=== PATIENT | female | born 1980 | race Caucasian/White ===

== ENCOUNTER 2020-12-01 14:35 | Emergency (ER) | payer OTHER ==
--- NOTE | 2020-12-01 15:51 | ER Document Report ---
ED Medical Screen (RME) - General Stated Complaint: LOW BLOOD SUGAR Time Seen by Provider: 12/01/20 15:44 Notes: HPI: 39-year-old female with history of both anemia and hypoglycemia presenting for evaluation of possible hypoglycemia today several hours ago. Patient became very diaphoretic, heart racing, shaky while shopping. Immediately had a candy bar and a Mountain Dew, started to feel slightly better but states she still had to have her drive her home her blood sugar was 71 when she got home. It is now 143 but she still feels somewhat shaky and feels her heart is racing. No chest pain no shortness of breath. Did not actually have a syncopal episode. Patient also with epigastric bypass patient PHYSICAL EXAMINATION: Patient is answering all questions appropriately. Gait is normal. Lung sounds are clear to auscultation very mild tachycardia is noted I have greeted and performed a rapid initial assessment of this patient. A comprehensive ED assessment and evaluation of the patient, analysis of test results and completion of medical decision making process will be conducted by an additional ED providers. Please note that clinical decision making for this patient was made during the 2019 pandemic of novel coronavirus which caused a significant strain on the healthcare system including at this particular facility. Criteria for admission discharge and level of care decisions as well as treatment decisions have necessarily changed Physical Exam - Vital signs Vitals: Temp Pulse Resp BP Pulse Ox 98.1 F 101 H 16 145/96 H 98 12/01/20 14:41 12/01/20 14:41 12/01/20 14:41 12/01/20 14:41 12/01/20 14:41 Course - Vital Signs Vital signs: Temp Pulse Resp BP Pulse Ox 98.1 F 101 H 16 145/96 H 98 12/01/20 14:41 12/01/20 14:41 12/01/20 14:41 12/01/20 14:41 12/01/20 14:41 - Laboratory Results Laboratory Results Interpreted: 12/01/20 14:43 POC Glucose 143 H
[2020-12-01 16:35] LABS: ABSOLUTE EOSINOPHILS # (AUTO) 0.1 10^3/uL (0.0-0.6); ABSOLUTE LYMPHOCYTES (AUTO) 1.8 10^3/uL (0.5-4.7); ABSOLUTE MONOCYTES (AUTO) 0.8 10^3/uL (0.1-1.4); ABSOLUTE NEUT (AUTO) 7.1 10^3/uL (1.7-8.2); BASOPHILS % (AUTO) 0.3 % (0-2); EOSINOPHILS % (AUTO) 1.2 % (0-6); HEMATOCRIT 39.1 % (36.0-47.0); HEMOGLOBIN 13.4 g/dL (12.0-15.5); LYMPHOCYTES % (AUTO) 18.3 % (13-45); MEAN CORPUSCULAR HEMOGLOBIN 28.7 pg (27.0-33.4); MEAN CORPUSCULAR HGB CONC 34.2 g/dL (32.0-36.0); MEAN CORPUSCULAR VOLUME 84 fl (80-97); MONOCYTES % (AUTO) 8.5 % (3-13); PLATELET COUNT 272 10^3/uL (150-450); RED BLOOD COUNT 4.66 10^6/uL (3.72-5.28); RED CELL DISTRIBUTION WIDTH 13.4 % (11.5-14.0); SEGMENTED NEUTROPHILS % (AUTO) 71.7 % (42-78); TOTAL CELLS COUNTED % (AUTO) 100 %; WHITE BLOOD COUNT 9.9 10^3/uL (4.0-10.5)
[2020-12-01 16:42] LABS: APPEARANCE,URINE CLEAR; BILIRUBIN,URINE NEGATIVE (NEGATIVE); COLOR,URINE YELLOW; GLUCOSE, URINE NEGATIVE (NEGATIVE); KETONES,URINE NEGATIVE (NEGATIVE); LEUKOCYTE ESTERASE,URINE NEGATIVE (NEGATIVE); NITRITE,URINE NEGATIVE (NEGATIVE); PROTEIN,URINE NEGATIVE (NEGATIVE); URINE SPECIFIC GRAVITY 1.011
[2020-12-01 16:52] LABS: ALBUMIN 4.1 g/dL (3.5-5.0); ALKALINE PHOSPHATASE 96 U/L (38-126); ANION GAP 5 (5-19); ASPARTATE AMINO TRANSFERASE 23 U/L (14-36); BILIRUBIN,DIRECT 0.2 mg/dL (0.0-0.4); BILIRUBIN,TOTAL 0.4 mg/dL (0.2-1.3); BLOOD UREA NITROGEN 9 mg/dL (7-20); CALCIUM 8.8 mg/dL (8.4-10.2); CARBON DIOXIDE 31 mmol/L (22-30); CHLORIDE 104 mmol/L (98-107); GLUCOSE 93 mg/dL (75-110); POTASSIUM 4.7 mmol/L (3.6-5.0); TOTAL PROTEIN 7.1 g/dL (6.3-8.2)
--- NOTE | 2020-12-01 18:15 | EKG REPORT ---
SEVERITY:- ABNORMAL ECG - SINUS RHYTHM PROBABLE LEFT ATRIAL ABNORMALITY PROBABLE LEFT VENTRICULAR HYPERTROPHY CONSIDER ANTERIOR INFARCT BORDERLINE T ABNORMALITIES, INFERIOR LEADS : Confirmed by: Johanna Santiago MD 01-Dec-2020 18:14:34
--- NOTE | 2020-12-01 22:10 | ER Document Report ---
ED General - General Chief Complaint: Low Blood Sugar Stated Complaint: LOW BLOOD SUGAR Time Seen by Provider: 12/01/20 15:44 Primary Care Provider: MILTON NICHOLSON PA-C [Primary Care Provider] - Follow up as needed - HPI Notes: 39-year-old female presents with concerns for hypoglycemic episode. Patient reports she has had multiple episodes of hypoglycemia in the past. She states that this morning she was shopping at [employer], she began to feel sweaty, heart racing and shaky. She states that she ate and drink and her symptoms resolved. She took her blood sugar and it was in the 70s. Patient states that her is a diabetic and he will occasionally monitor her sugars. She has had an ep isode where her sugars are in the 60s. She has not been evaluated for these episodes via her primary care doctor. She also reports concerned that her anemia is back. Patient currently denies complaints. - Related Data Allergies/Adverse Reactions: clindamycin Allergy (Verified 12/01/20 21:39) diphenhydramine [From Benadryl] Allergy (Verified 12/01/20 21:39) Home Medications: LEXAPRO. PROPRANALOL. CLANAZEPAM Past Medical History - General Information source: Patient - Social History Smoking Status: Never Smoker Frequency of alcohol use: None Drug Abuse: None Family History: DM Patient has homicidal ideation: No Review of Systems - Review of Systems Constitutional: No symptoms reported EENT: No symptoms reported Cardiovascular: No symptoms reported Respiratory: No symptoms reported Gastrointestinal: No symptoms reported Genitourinary: No symptoms reported Female Genitourinary: No symptoms reported Musculoskeletal: No symptoms reported Skin: No symptoms reported Hematologic/Lymphatic: No symptoms reported Neurological/Psychological: No symptoms reported Physical Exam - Vital signs Vitals: Temp Pulse Resp BP Pulse Ox 98.1 F 101 H 16 145/96 H 98 12/01/20 14:41 12/01/20 14:41 12/01/20 14:41 12/01/20 14:41 12/01/20 14:41 - General General appearance: Appears well, Alert In distress: None - HEENT Head: Normocephalic, Atraumatic Extraocular movements intact: Yes Pupils: PERRL - Respiratory Breath sounds: Normal - Cardiovascular Rhythm: Regular Heart sounds: Normal auscultation - Abdominal Inspection: Obese Tenderness: Nontender - Extremities General upper extremity: Normal ROM General lower extremity: Normal ROM - Neurological Neuro grossly intact: Yes Cognition: Normal Orientation: AAOx4 - Psychological Associated symptoms: Normal affect - Skin Skin Temperature: Warm Course - Re-evaluation Re-evalutation: 39-year-old female with likely episode of hypoglycemia this morning while shopping, has had similar events to this in the past, her symptoms resolved with p.o. intake. Patient is currently without complaints now. She is alert, well- appearing, hemodynamically stable. Lab evaluation is grossly unremarkable. No documented hypoglycemia here. Discussed with patient the need to please follow- up with her primary care doctor to be evaluated for symptomatic hypoglycemia, would have concern for possible metabolic disorder or even something as rare as an insulinoma. She verbalized understanding. Return precautions given, stable at time of discharge. - Vital Signs Vital signs: Temp Pulse Resp BP Pulse Ox 98.4 F 68 16 130/72 H 98 12/01/20 22:58 12/01/20 22:58 12/01/20 22:58 12/01/20 22:58 12/01/20 22:58 - Laboratory Results Result Diagrams: 12/01/20 16:23 12/01/20 16:23 Laboratory Results Interpreted: 12/01/20 12/01/20 12/01/20 14:43 16:23 16:23 Carbon Dioxide 31 H POC Glucose 143 H Urine Urobilinogen 2.0 H Critical Laboratory Results Reviewed: No Critical Results - Radiology Results Critical Radiology Results Reviewed: No Critical Results - EKG Interpretation by Me Additional EKG results interpreted by me: EKG is interpreted by me. Sinus rhythm, rate 75. Narrow QRS, QTC within normal limits. No ST segment elevation or depression. Discharge - Discharge Clinical Impression: Spontaneous hypoglycemia Disposition: HOME, SELF-CARE Additional Instructions: As discussed, please ask your primary care doctor to work you up for possible endocrine disorder for these recurrent episodes of hypoglycemia. Would recommend keeping journal of blood sugar variations. Return to the emergency department for any concerning worsening symptoms. Referrals: MILTON NICHOLSON PA-C [Primary Care Provider] - Follow up as needed
[2020-12-01 22:59] VITALS: BP 130/72
== END 2020-12-01 22:58 | disposition home or self-care (01) ==
LOC: ER 14:35
DX: E16.2 Hypoglycemia, unspecified (principal); Z79.899 Other long term (current) drug therapy; Z88.1 Allergy status to other antibiotic agents; Z88.8 Allergy status to other drugs, medicaments and biological substances
CPT/HCPCS: 36415; 80053; 81001; 82962; 84443; 84484; 85025; 93005; 93010; 99284